=== PATIENT | female | born 2000 | race Caucasian/White ===

== ENCOUNTER 2022-09-19 07:36 | Observation (INO) | payer SELFPAY ==
[2022-09-19] MEDS ORDERED: Ketorolac Tromethamine 30 MG/ML VIAL ONE ×2 (07:58→15:46)
[2022-09-19] MEDS ORDERED: Ondansetron PF 4 MG/2 ML Vial ONE ×2 (07:58→14:32)
[2022-09-19 08:09] LABS: #Basophils 0.1 10x3/uL (0.0-0.2); #Eosinphils 0.3 10x3/uL (0.0-0.5); #Monocytes 0.5 10x3/uL (0.0-1.1); #Neutrophils 11.4 10x3/uL (1.5-8.4); %Basophils 0.4 % (0.0-2.0); %Eosinophils 1.8 % (0.0-6.0); %Monocytes 3.5 % (0.0-10.0); %Neutrophils 75.9 % (40.0-75.0); Mean Corpuscular HGB CONC 32.6 g/dL (32.0-36.0); Mean Corpuscular Hemoglobin 24.6 pg (27.0-33.0); Mean Corpuscular Volume 75.6 fl (81.6-98.3); Mean Platelet Volume 12.8 fl (7.4-10.4); Platelet Count 346 10x3/uL (150-450); Red Blood Cell (RBC) Count 4.87 10x6/uL (3.90-5.03); White Blood Cell (WBC) Count 15.1 10x3/uL (3.5-10.5)
[2022-09-19 08:22] LABS: ALT (SGPT) 18 U/L (8-55); AST (SGOT) 20 U/L (5-34); Albumin 4.8 g/dL (3.5-5.0); Alkaline Phosphatase 104 U/L (40-110); Anion Gap 13 mmol/L (10-20); BUN (Urea Nitrogen) 15 mg/dL (7.0-18.7); Bilirubin, Total 0.2 mg/dL (0.2-1.2); Calc. Creatinine Clearance 0 mL/min (70-130); Calcium 10.2 mg/dL (7.8-10.44); Carbon Dioxide 23 mmol/L (22-29); Chloride 105 mmol/L (98-107); Estimated GFR 114; Globulin 3.5 g/dL (2.4-3.5); Glucose 124 mg/dL (70-105); Lipase 34 U/L (8-78); Potassium 3.8 mmol/L (3.5-5.1); Protein, Total 8.3 g/dL (6.0-8.3); Sodium 137 mmol/L (136-145)
[2022-09-19] MEDS ORDERED: Morphine 4 MG/ML VIAL ONE ×2 (08:46→09:52)
[2022-09-19 10:05] LABS: Bilirubin Neg (Negative); Blood, Urine Negative (Negative); Clarity Slightly Cloudy (Clear); Glucose, Urine (Dipstick) Normal (Negative); Ketone, Urine Negative (Negative); Leukocyte 25 (Negative); Nitrite Negative (Negative); Protein, Urine (Dipstick) 30 mg/dl (Neg-Trace); Urobilinogen Normal mg/dL (Less than 2)
[2022-09-19 10:08] LABS: Pregnancy Test - Urine (BHCG) Negative (Negative); Pregu Control Background? CLEAR/WHITE (CLR/WHITE); Pregu Control Bar Appear? YES (CONTROL BAR)
[2022-09-19] MEDS ORDERED: HYDROmorphone 0.5 MG/0.5 ML SYRINGE ONE (10:25)
[2022-09-19] MEDS ORDERED: Piperacillin/Tazobactam 3.375 GM VIAL ONE (10:25)
[2022-09-19 10:26] LABS: Bacteria/HPF Rare-Few HPF (None Seen); RBC/HPF 0-3 HPF (0-3); Squamous Epithelial Greater than 50 HPF (0-3); WBC/HPF 0-3 HPF (0-3)
[2022-09-19 10:49] LABS: SARS-CoV-2 NAA Rapid Test Not Detected (NotDetected)
[2022-09-19 12:59] VITALS: BMI 28.3
[2022-09-19] MEDS ORDERED: Ondansetron PF 4 MG/2 ML Vial IVP PRN ×2 (13:22→15:58)
[2022-09-19] MEDS: Sodium Chloride 0.9% 1,000 ML IV SCH ×2 (13:23→22:57)
[2022-09-19] MEDS ORDERED: FLU VACC QS2022-23(6MOS UP)/PF 60 MCG/0.5 ML SYRINGE IM ONE (13:30)
[2022-09-19] MEDS ORDERED: Morphine 2 MG/ML VIAL SLOW IVP PRN ×2 (13:37→15:58)
[2022-09-19] MEDS ORDERED: Morphine 4 MG/ML VIAL SLOW IVP PRN ×2 (13:38→15:58)
[2022-09-19] MEDS ORDERED: Bupivacaine PF 0.5% 30 ML VIAL ONE (14:24)
[2022-09-19] MEDS ORDERED: EPINEPHrine 1 MG/ML AMP ONE (14:24)
[2022-09-19] MEDS ORDERED: Fentanyl 100 MCG/2 ML VIAL ONE (14:29)
[2022-09-19] MEDS ORDERED: Midazolam HCl 2 mg/2 ml Vial ONE (14:30)
[2022-09-19] MEDS ORDERED: PROPOFOL 20 ML ONE (14:30)
[2022-09-19] MEDS ORDERED: Dexamethasone 4 mg/ml Vial ONE (14:32)
[2022-09-19] MEDS: Piperacillin/Tazobactam 3.375 GM in Sodium Chloride 0.9% 100 ML IVPB SCH ×2 (14:57→23:06)
[2022-09-19] MEDS ORDERED: Lidocaine 4% PF 5 ML AMP ONE (15:13)
[2022-09-19] MEDS ORDERED: PHENYLEPHRINE-NS 100 MCG/ML 10 ML SYRINGE ONE (15:36)
[2022-09-19] MEDS ORDERED: Glycopyrrolate 0.2 MG/ML 5 ML SYRINGE ONE (15:38)
[2022-09-19] MEDS ORDERED: Calcium Carbonate 500 MG ChewTAB PO PRN (15:58)
[2022-09-19] MEDS ORDERED: Promethazine HCl 25 MG/ML VIAL IM PRN (15:58)
[2022-09-19] MEDS ORDERED: Mag-Al 1200 mg/1200 mg/30 ML UDCUP PO PRN (15:58)
[2022-09-19] MEDS ORDERED: HYDROcodone/Acetaminophen 10/325 mg Tablet PO PRN (15:58)
[2022-09-19] MEDS ORDERED: hydrALAZINE 20 MG/ML VIAL SLOW IVP PRN (15:58)
[2022-09-19] MEDS ORDERED: Dextrose 5% in Water 1,000 ML IV PRN (15:58)
[2022-09-19] MEDS ORDERED: Dextrose 50% Abboject 50 ML SYRINGE SLOW IVP PRN (15:58)
[2022-09-19] MEDS: D5 1/2 NS w/20 mEq KCL 1,000 ML IV SCH (17:07)
[2022-09-19] MEDS: Ketorolac Tromethamine 30 MG/ML VIAL IVP SCH ×2 (17:07→23:05)
[2022-09-19] MEDS: Famotidine 20 MG TAB PO SCH (19:58)
[2022-09-19] MEDS: Famotidine/PF 20 mg/2ml Vial SLOW IVP SCH (19:59)
[2022-09-19] MEDS: HYDROcodone/Acetaminophen 10/325 mg Tablet PO PRN (20:01)
[2022-09-20] MEDS: D5 1/2 NS w/20 mEq KCL 1,000 ML IV SCH ×2 (01:27→08:10)
[2022-09-20] MEDS: HYDROcodone/Acetaminophen 10/325 mg Tablet PO PRN ×2 (04:57→13:50)
[2022-09-20] MEDS: Ketorolac Tromethamine 30 MG/ML VIAL IVP SCH ×2 (04:58→11:09)
[2022-09-20 05:14] LABS: #Monocytes 0.5 10x3/uL (0.0-1.1); #Neutrophils 13.8 10x3/uL (1.5-8.4); %Basophils 0.1 % (0.0-2.0); %Lymphocytes 10.1 % (18.0-47.0); %Monocytes 2.8 % (0.0-10.0); %Neutrophils 86.7 % (40.0-75.0); Hemoglobin 10.7 g/dL (12.0-15.5); Mean Corpuscular HGB CONC 31.8 g/dL (32.0-36.0); Mean Corpuscular Hemoglobin 24.4 pg (27.0-33.0); Mean Corpuscular Volume 76.9 fl (81.6-98.3); Platelet Count 323 10x3/uL (150-450); RBC Distribution Width 16.3 % (11.5-14.5); Red Blood Cell (RBC) Count 4.38 10x6/uL (3.90-5.03); White Blood Cell (WBC) Count 15.9 10x3/uL (3.5-10.5)
[2022-09-20 05:34] LABS: ALT (SGPT) 217 U/L (8-55); AST (SGOT) 160 U/L (5-34); Albumin 3.8 g/dL (3.5-5.0); Alkaline Phosphatase 125 U/L (40-110); Anion Gap 11 mmol/L (10-20); BUN (Urea Nitrogen) 8 mg/dL (7.0-18.7); Bilirubin, Total 0.5 mg/dL (0.2-1.2); Calc. Creatinine Clearance 142 mL/min (70-130); Calcium 8.9 mg/dL (7.8-10.44); Carbon Dioxide 20 mmol/L (22-29); Chloride 109 mmol/L (98-107); Estimated GFR 123; Globulin 2.9 g/dL (2.4-3.5); Glucose 180 mg/dL (70-105); Lipase 20 U/L (8-78); Potassium 4.2 mmol/L (3.5-5.1); Protein, Total 6.7 g/dL (6.0-8.3); Sodium 136 mmol/L (136-145)
[2022-09-20] MEDS: Famotidine 20 MG TAB PO SCH (08:09)
[2022-09-20] MEDS: Famotidine/PF 20 mg/2ml Vial SLOW IVP SCH (08:13)
[2022-09-20] MEDS ORDERED: Enoxaparin Sodium 40 MG/0.4 ML SYRINGE SC SCH (09:00)
[2022-09-20 12:13] VITALS: BP 102/58; TEMP 98
== END 2022-09-20 13:58 | disposition home or self-care (01) ==
LOC: CSHERS 07:36 → CSHTELE 12:10
PROVIDERS: ADMIT Surgery; ATTEND Surgery
PROC: 0FT44ZZ Resection of Gallbladder, Percutaneous Endoscopic Approach (ICD-10-PCS; principal; 2022-09-19)
DX: K80.10 Calculus of gallbladder with chronic cholecystitis without obstruction (principal); K82.8 Other specified diseases of gallbladder; Z20.822 Contact with and (suspected) exposure to COVID-19
CPT/HCPCS: 36416; 76705; 80053; 81003; 81015; 81025; 83690; 85025; 88304; 93005; 94760; 96361; 96372; 96374; 96375; 96376; C1889; G0378; J0171; J1100; J1170; J1650; J1885; J2250; J2270; J2405; J2543; J2704; J3010; J3480; J3490; J7050; S0020; S0028; U0002

== ENCOUNTER 2023-11-21 14:12 | Emergency (ER) | payer SELFPAY ==
[2023-11-21 15:35] LABS: Influenza A by NAA Not Detected (NotDetected); Influenza B by NAA Not Detected (NotDetected); SARS-CoV-2 NAA Rapid Test Not Detected (NotDetected)
== END 2023-11-21 17:09 | disposition home or self-care (01) ==
LOC: CSHERS 14:12
DX: J06.9 Acute upper respiratory infection, unspecified (principal)
CPT/HCPCS: 87081; 87430; 99283